=== PATIENT | female | born 1970 | race Two or more races ===

== ENCOUNTER 2016-06-21 20:41 | Emergency (ER) | payer MEDICAID ==
[~2016-06-21] VITALS: Ht 157.5 cm; Wt 48.4 kg
[~2016-06-21 20:41] MED LIST: AMOX1TAB64 PO; COMPAZINE; DEXL60CA PO; HYDR-3240 PO; HYDR25CA94 PO; OMEP10CA4 PO; ONDA4TAB10 PO; OXYC1TAB8 PO
[2016-06-21] MEDS ORDERED: SODIUM CHLORIDE 0.9% 1,000ML IVBOLUS ONE (21:00)
[2016-06-21] MEDS ORDERED: ONDANSETRON 2MG/ML, 2ML IVPush ONE (21:00)
[2016-06-21] MEDS ORDERED: SODIUM CHLORIDE FLUSH 10ML SYR IVF ONE (21:00)
[2016-06-21 21:11] LABS: HEMOGLOBIN 12.2 g/dL (11.7-16.4)
[2016-06-21] MEDS ORDERED: ONDANSETRON 2MG/ML, 2ML ONE (21:13)
[2016-06-21 21:24] LABS: BLOOD UREA NITROGEN 11 mg/dL (7-18)
[2016-06-21] MEDS ORDERED: IBUPROFEN 200 MG TABLET PO ONE (21:30)
[2016-06-21] MEDS ORDERED: IBUPROFEN 200 MG TABLET ONE (21:40)
[2016-06-21 21:56] LABS: RAPID INFLUENZA A Negative (Negative); RAPID INFLUENZA B Negative (Negative)
[2016-06-21 23:12] VITALS: BP 136/86
== END 2016-06-21 23:15 | disposition home or self-care (01) ==
LOC: ED 22:55
DX: B34.9 Viral infection, unspecified (principal); K21.9 Gastro-esophageal reflux disease without esophagitis; Z98.51 Tubal ligation status
CPT/HCPCS: 36415; 71020; 80048; 81003; 82040; 84703; 85025; 87400; 96361; 96374; 99285; J2405; J7030

== ENCOUNTER 2016-11-19 20:13 | Emergency (ER) | payer MEDICAID ==
[~2016-11-19] VITALS: Ht 157.5 cm; Wt 49.2 kg
[~2016-11-19 20:13] MED LIST changes: -DEXL60CA PO; +DEXL60CA2 PO
[2016-11-19] MEDS ORDERED: ACETAMINOPHEN 325 MG TABLET ONE (20:48)
[2016-11-19] MEDS ORDERED: ACETAMINOPHEN 325 MG TABLET PO ONE (21:00)
[2016-11-19 21:06] LABS: HEMATOCRIT 37.6 % (34.6-47.8); HEMOGLOBIN 12.2 g/dL (11.7-16.4); WHITE BLOOD COUNT 9.3 x10^3/uL (3.4-10)
[2016-11-19 21:16] LABS: BLOOD UREA NITROGEN 11 mg/dL (7-18)
[2016-11-19 21:49] VITALS: BP 127/59
== END 2016-11-19 21:52 | disposition home or self-care (01) ==
LOC: ED 21:46
DX: K21.9 Gastro-esophageal reflux disease without esophagitis (principal); R10.84 Generalized abdominal pain; J02.9 Acute pharyngitis, unspecified; F17.200 Nicotine dependence, unspecified, uncomplicated; Z98.51 Tubal ligation status
CPT/HCPCS: 36415; 71010; 80048; 81003; 82040; 85025; 93005; 99285

== ENCOUNTER 2017-01-21 23:43 | Emergency (ER) | payer MEDICAID ==
[~2017-01-21] VITALS: Ht 157.5 cm; Wt 50.0 kg
[2017-01-22] MEDS ORDERED: ONDANSETRON 2MG/ML, 2ML ONE (00:26)
[2017-01-22] MEDS ORDERED: morphine SULFATE 10 MG/ML, 1ML ONE (00:26)
[2017-01-22 00:29] LABS: HCG UR LOT HCG7030192
[2017-01-22] MEDS ORDERED: ONDANSETRON 2MG/ML, 2ML IVPush ONE (00:30)
[2017-01-22] MEDS ORDERED: MORPHINE SULFATE 4 MG/ML, 1ML IVPush PRN (00:30)
[2017-01-22] MEDS ORDERED: SODIUM CHLORIDE 0.9% 1,000ML IVBOLUS ONE (00:30)
[2017-01-22 00:36] LABS: HCG UR OBC PASS
[2017-01-22 00:39] LABS: PATH.CAST-FLAG NOT PRESENT; SPERM-FLAG NOT PRESENT; SRC-FLAG NOT PRESENT; XTAL-FLAG NOT PRESENT; YLC-FLAG NOT PRESENT
[2017-01-22 00:57] LABS: HEMATOCRIT 38.3 % (34.6-47.8); HEMOGLOBIN 12.8 g/dL (11.7-16.4)
[2017-01-22 01:08] LABS: ASPARTATE AMINO TRANSFERASE 10 U/L (15-37); BLOOD UREA NITROGEN 7 mg/dL (7-18)
[2017-01-22] MEDS ORDERED: ZIPRASIDONE 20 MG INJ IM ONE ×2 (02:00→02:25)
[2017-01-22 02:54] VITALS: BP 136/72
== END 2017-01-22 02:58 | disposition home or self-care (01) ==
LOC: ED 23:59
DX: S39.012A Strain of muscle, fascia and tendon of lower back, initial encounter (principal); K59.00 Constipation, unspecified; N83.291 Other ovarian cyst, right side; K21.9 Gastro-esophageal reflux disease without esophagitis; F17.200 Nicotine dependence, unspecified, uncomplicated; X58.XXXA Exposure to other specified factors, initial encounter; Y93.89 Activity, other specified; Y92.89 Other specified places as the place of occurrence of the external cause; Y99.8 Other external cause status
CPT/HCPCS: 36415; 72131; 80053; 81001; 81025; 85025; 87086; 96361; 96372; 96374; 96375; 99285; J2405; J3486; J7030

== ENCOUNTER 2017-04-25 13:57 | Emergency (ER) | payer MEDICAID ==
[~2017-04-25] VITALS: Ht 157.5 cm; Wt 46.5 kg
[2017-04-25] MEDS ORDERED: FAMOTIDINE 20 MG/2 ML IVP ONE (15:00)
[2017-04-25] MEDS ORDERED: ONDANSETRON 2MG/ML, 2ML IVPush ONE (15:00)
[2017-04-25] MEDS ORDERED: SODIUM CHLORIDE 0.9% 1,000ML IVBOLUS ONE (15:00)
[2017-04-25] MEDS ORDERED: SODIUM CHLORIDE FLUSH 10ML SYR IVF ONE (15:00)
[2017-04-25 15:07] LABS: BASOPHILS # (AUTO) 0.02 x10^3/uL (0-0.1); BASOPHILS % (AUTO) 0 % (0-1); EOSINOPHILS # (AUTO) 0.03 x10^3/uL (0-0.4); EOSINOPHILS % (AUTO) 1 % (1-7); LYMPHOCYTES # (AUTO) 2.39 x10^3/uL (1-3.4); LYMPHOCYTES % (AUTO) 38 % (22-44); MD NO; MEAN CORPUSCULAR HEMOGLOBIN 28.8 pg (27.0-34.8); MEAN CORPUSCULAR HGB CONC 33.1 g/dL (32.4-35.8); MEAN CORPUSCULAR VOLUME 86.8 fL (80-100); MEAN PLATELET VOLUME 8.7 fL (7.4-10.4); MONOCYTES # (AUTO) 0.33 x10^3/uL (0.2-0.8); MONOCYTES % (AUTO) 5 % (2-9); NEUTROPHILS % (AUTO) 56 % (42-75); PLATELET COUNT 231 x10^3/uL (130-400); RED BLOOD COUNT 4.75 x10^6/uL (3.82-5.3); RED CELL DISTRIBUTION WIDTH 13.8 % (9.6-15.2)
[2017-04-25] MEDS ORDERED: FAMOTIDINE 20 MG/2 ML ONE (15:08)
[2017-04-25] MEDS ORDERED: ONDANSETRON 2MG/ML, 2ML ONE ×2 (15:08→17:51)
[2017-04-25 15:15] LABS: ALBUMIN 4.2 g/dL (3.4-5.0); ANION GAP 9 mmol/L (5-15); CALCIUM 8.9 mg/dL (8.5-10.1); CHLORIDE 109 mmol/L (98-107)
[2017-04-25 15:21] LABS: ALANINE AMINOTRANSFERASE 17 U/L (12-78); ALKALINE PHOSPHATASE 58 U/L (45-117); BILIRUBIN,TOTAL 0.3 mg/dL (0.2-1.0); TOTAL PROTEIN 8.3 g/dL (6.4-8.2)
[2017-04-25 15:35] LABS: MICROSCOPIC NOT IND
[2017-04-25 15:41] LABS: CULTURE INDICATED? NO
[2017-04-25] MEDS ORDERED: KETOROLAC 30 MG/1 ML ONE (16:29)
[2017-04-25] MEDS ORDERED: KETOROLAC 30 MG/1 ML IVPush ONE (16:30)
[2017-04-25] MEDS ORDERED: HYDROmorphone 1 MG/ML, 1ML ONE (17:47)
[2017-04-25] MEDS ORDERED: HYDROmorphone 1 MG/ML, 1ML IV ONE (18:00)
[2017-04-25 18:35] VITALS: BP 136/85
== END 2017-04-25 18:37 | disposition home or self-care (01) ==
LOC: ED 16:46
DX: R10.84 Generalized abdominal pain (principal); G89.29 Other chronic pain; K21.9 Gastro-esophageal reflux disease without esophagitis
CPT/HCPCS: 36415; 76700; 80053; 81003; 83690; 84703; 85025; 96361; 96374; 96375; 99285; J1170; J1885; J2405; J7030; S0028

== ENCOUNTER 2017-11-30 22:33 | Emergency (ER) | payer OTHER ==
[~2017-11-30] VITALS: Ht 157.5 cm; Wt 44.8 kg
[~2017-11-30 22:33] MED LIST changes: +AMIT10TA PO; +DICY10CA3 PO; +FAMO40TA61 PO
[2017-11-30] MEDS ORDERED: LORazepam 1MG TABLET ONE (23:16)
[2017-11-30] MEDS ORDERED: LORazepam 1MG TABLET PO ONE (23:30)
[2017-11-30 23:32] LABS: BASOPHILS # (AUTO) 0.03 x10^3/uL (0-0.1); BASOPHILS % (AUTO) 1 % (0-1); EOSINOPHILS # (AUTO) 0.07 x10^3/uL (0-0.4); EOSINOPHILS % (AUTO) 1 % (1-7); LYMPHOCYTES # (AUTO) 2.74 x10^3/uL (1-3.4); LYMPHOCYTES % (AUTO) 45 % (22-44); MD NO; MEAN CORPUSCULAR HEMOGLOBIN 30.1 pg (27.0-34.8); MEAN CORPUSCULAR HGB CONC 34.4 g/dL (32.4-35.8); MEAN CORPUSCULAR VOLUME 87.6 fL (80-100); MONOCYTES # (AUTO) 0.44 x10^3/uL (0.2-0.8); MONOCYTES % (AUTO) 7 % (2-9); NEUTROPHILS # (AUTO) 2.78 x10^3/uL (1.8-6.8); NEUTROPHILS % (AUTO) 46 % (42-75); PLATELET COUNT 200 x10^3/uL (130-400); RED BLOOD COUNT 4.27 x10^6/uL (3.82-5.3); RED CELL DISTRIBUTION WIDTH 12.9 % (9.6-15.2)
[2017-11-30 23:34] LABS: ALANINE AMINOTRANSFERASE 23 U/L (12-78); ANION GAP 9 mmol/L (5-15); CHLORIDE 109 mmol/L (98-107)
[2017-11-30 23:38] LABS: ALKALINE PHOSPHATASE 54 U/L (45-117); BILIRUBIN,TOTAL 0.5 mg/dL (0.2-1.0); TOTAL PROTEIN 7.8 g/dL (6.4-8.2); TROPONIN I < 0.015 ng/mL (0.000-0.045)
[2017-12-01 00:08] VITALS: BP 124/87
[2017-12-01] MEDS ORDERED: PROMETHAZINE 25 MG/ML, 1ML ONE (00:09)
[2017-12-01] MEDS ORDERED: PROMETHAZINE 25 MG/ML, 1ML IM ONE (00:30)
== END 2017-12-01 01:21 | disposition home or self-care (01) ==
LOC: ED 23:02
DX: K21.9 Gastro-esophageal reflux disease without esophagitis (principal)
CPT/HCPCS: 36415; 80053; 84484; 85025; 93005; 96372; 99285; J2550

== ENCOUNTER 2018-02-18 01:44 | Emergency (ER) | payer OTHER ==
[~2018-02-18] VITALS: Ht 157.5 cm; Wt 44.4 kg
[2018-02-18 02:07] LABS: MICROSCOPIC AUTO
[2018-02-18] MEDS ORDERED: ONDANSETRON 2MG/ML, 2ML ONE (02:11)
[2018-02-18] MEDS ORDERED: MORPHINE SULFATE 4 MG/ML, 1ML ONE (02:12)
[2018-02-18] MEDS ORDERED: ONDANSETRON 2MG/ML, 2ML IVPush ONE (02:30)
[2018-02-18] MEDS ORDERED: MORPHINE SULFATE 4 MG/ML, 1ML IVPush PRN (02:30)
[2018-02-18 02:36] LABS: BASOPHILS # (AUTO) 0.04 x10^3/uL (0-0.1); BASOPHILS % (AUTO) 0 % (0-1); EOSINOPHILS # (AUTO) 0.02 x10^3/uL (0-0.4); EOSINOPHILS % (AUTO) 0 % (1-7); LYMPHOCYTES # (AUTO) 2.88 x10^3/uL (1-3.4); LYMPHOCYTES % (AUTO) 29 % (22-44); MD NO; MEAN CORPUSCULAR HEMOGLOBIN 29.7 pg (27.0-34.8); MEAN CORPUSCULAR HGB CONC 33.2 g/dL (32.4-35.8); MEAN CORPUSCULAR VOLUME 89.6 fL (80-100); MEAN PLATELET VOLUME 8.4 fL (7.4-10.4); MONOCYTES # (AUTO) 0.55 x10^3/uL (0.2-0.8); MONOCYTES % (AUTO) 5 % (2-9); NEUTROPHILS # (AUTO) 6.62 x10^3/uL (1.8-6.8); NEUTROPHILS % (AUTO) 66 % (42-75); PLATELET COUNT 298 x10^3/uL (130-400); RED BLOOD COUNT 4.76 x10^6/uL (3.82-5.3); RED CELL DISTRIBUTION WIDTH 14.3 % (9.6-15.2)
[2018-02-18 02:43] LABS: ALANINE AMINOTRANSFERASE 25 U/L (12-78); ALBUMIN 4.4 g/dL (3.4-5.0); ANION GAP 15 mmol/L (5-15); CALCIUM 8.7 mg/dL (8.5-10.1); CHLORIDE 103 mmol/L (98-107); CREATININE 0.75 mg/dL (0.55-1.02)
[2018-02-18 02:45] LABS: ALKALINE PHOSPHATASE 59 U/L (45-117); BILIRUBIN,TOTAL 0.6 mg/dL (0.2-1.0); TOTAL PROTEIN 8.6 g/dL (6.4-8.2)
[2018-02-18 03:54] LABS: HCG UR SG 1.012 (1.003-1.030)
[2018-02-18] MEDS ORDERED: METOCLOPRAMIDE 5 MG/ML, 2ML ONE (04:13)
[2018-02-18] MEDS ORDERED: LORazepam 2 MG/ML, 1ML ONE (04:13)
[2018-02-18] MEDS ORDERED: METOCLOPRAMIDE 5 MG/ML, 2ML IVPush ONE (04:30)
[2018-02-18] MEDS ORDERED: LORazepam 2 MG/ML, 1ML IVPush ONE (04:30)
[2018-02-18 04:52] VITALS: BP 114/63
== END 2018-02-18 04:55 | disposition home or self-care (01) ==
LOC: ED 02:45
DX: K25.3 Acute gastric ulcer without hemorrhage or perforation (principal); F41.1 Generalized anxiety disorder; K21.9 Gastro-esophageal reflux disease without esophagitis; F17.200 Nicotine dependence, unspecified, uncomplicated
CPT/HCPCS: 36415; 80053; 81001; 81025; 83690; 85025; 86677; 96374; 96375; 99283; J2060; J2405; J2765

== ENCOUNTER 2018-03-16 14:27 | Emergency (ER) | payer OTHER, MEDICAID ==
[~2018-03-16] VITALS: Ht 157.5 cm; Wt 42.9 kg
[2018-03-16] MEDS ORDERED: LORazepam 2 MG/ML, 1ML ONE (15:00)
[2018-03-16] MEDS ORDERED: DICYCLOMINE 10 MG/ML, 2ML ONE (15:00)
[2018-03-16] MEDS ORDERED: LORazepam 2 MG/ML, 1ML IVPush ONE (15:00)
[2018-03-16] MEDS ORDERED: DICYCLOMINE 10 MG/ML, 2ML IM ONE (15:00)
[2018-03-16] MEDS ORDERED: PANTOPRAZOLE 40 MG IV IVP ONE (15:00)
[2018-03-16] MEDS ORDERED: ONDANSETRON 2MG/ML, 2ML ONE (15:00)
[2018-03-16] MEDS ORDERED: ONDANSETRON 2MG/ML, 2ML IVPush ONE (15:00)
[2018-03-16] MEDS ORDERED: PANTOPRAZOLE 40 MG IV ONE (15:00)
[2018-03-16 15:04] LABS: HCG UR SG 1.018 (1.003-1.030); MICROSCOPIC AUTO
[2018-03-16 15:06] LABS: CULTURE INDICATED? NO
[2018-03-16 15:23] LABS: BASOPHILS # (AUTO) 0.07 x10^3/uL (0-0.1); BASOPHILS % (AUTO) 1 % (0-1); EOSINOPHILS # (AUTO) 0.01 x10^3/uL (0-0.4); EOSINOPHILS % (AUTO) 0 % (1-7); LYMPHOCYTES # (AUTO) 2.35 x10^3/uL (1-3.4); LYMPHOCYTES % (AUTO) 21 % (22-44); MD NO; MEAN CORPUSCULAR HEMOGLOBIN 30.2 pg (27.0-34.8); MEAN CORPUSCULAR HGB CONC 33.8 g/dL (32.4-35.8); MEAN CORPUSCULAR VOLUME 89.3 fL (80-100); MEAN PLATELET VOLUME 8.3 fL (7.4-10.4); MONOCYTES # (AUTO) 0.66 x10^3/uL (0.2-0.8); MONOCYTES % (AUTO) 6 % (2-9); NEUTROPHILS # (AUTO) 8.05 x10^3/uL (1.8-6.8); NEUTROPHILS % (AUTO) 72 % (42-75); PLATELET COUNT 267 x10^3/uL (130-400); RED BLOOD COUNT 4.71 x10^6/uL (3.82-5.3); RED CELL DISTRIBUTION WIDTH 13.8 % (9.6-15.2)
[2018-03-16 15:35] LABS: ALBUMIN 4.9 g/dL (3.4-5.0); ANION GAP 14 mmol/L (5-15); CALCIUM 8.6 mg/dL (8.5-10.1); CHLORIDE 103 mmol/L (98-107)
[2018-03-16 15:38] LABS: ALANINE AMINOTRANSFERASE 26 U/L (12-78); ALKALINE PHOSPHATASE 69 U/L (45-117); BILIRUBIN,TOTAL 1.7 mg/dL (0.2-1.0); CREATININE 0.73 mg/dL (0.55-1.02); TOTAL PROTEIN 8.8 g/dL (6.4-8.2)
[2018-03-16] MEDS ORDERED: MAALOX/HYOSCYAMINE/LIDOCAINE 45 ML BTL ONE (15:51)
[2018-03-16] MEDS ORDERED: MAALOX/HYOSCYAMINE/LIDOCAINE 45 ML BTL PO ONE (16:00)
[2018-03-16] MEDS ORDERED: PROMETHAZINE 25 MG/ML, 1ML IM ONE (16:30)
[2018-03-16] MEDS ORDERED: PROMETHAZINE 25 MG/ML, 1ML ONE (16:35)
[2018-03-16 17:05] VITALS: BP 111/64
== END 2018-03-16 17:34 | disposition home or self-care (01) ==
LOC: ED 16:21
DX: K29.20 Alcoholic gastritis without bleeding (principal); F10.20 Alcohol dependence, uncomplicated; K21.9 Gastro-esophageal reflux disease without esophagitis
CPT/HCPCS: 36415; 76830; 80053; 81001; 81025; 83690; 85025; 96372; 96374; 96375; 99284; C9113; J0500; J2060; J2405; J2550

== ENCOUNTER 2018-05-03 18:08 | Emergency (ER) | payer MEDICAID, OTHER ==
[~2018-05-03] VITALS: Ht 157.5 cm; Wt 42.4 kg
--- NOTE | 2018-05-03 18:28 | NUR ---
PT REPORTS HAVING EPIGASTRIC PAIN, JUARES, AND ANXIETY. STATED THAT SHE HAS HAD STOMACH PROBLEMS FOR 25 YEARS, BUT GOT WORSE TODAY. PT IS ALERT, ORIENTED, NAD. CALL LIGHT WITHIN REACH.
[2018-05-03 18:32] LABS: BASOPHILS # (AUTO) 0.03 x10^3/uL (0-0.1); BASOPHILS % (AUTO) 1 % (0-1); EOSINOPHILS # (AUTO) 0.05 x10^3/uL (0-0.4); EOSINOPHILS % (AUTO) 1 % (1-7); LYMPHOCYTES # (AUTO) 2.35 x10^3/uL (1-3.4); LYMPHOCYTES % (AUTO) 36 % (22-44); MD NO; MEAN CORPUSCULAR HEMOGLOBIN 30.4 pg (27.0-34.8); MEAN CORPUSCULAR VOLUME 89.6 fL (80-100); MEAN PLATELET VOLUME 8.3 fL (7.4-10.4); MONOCYTES # (AUTO) 0.58 x10^3/uL (0.2-0.8); MONOCYTES % (AUTO) 9 % (2-9); NEUTROPHILS # (AUTO) 3.51 x10^3/uL (1.8-6.8); NEUTROPHILS % (AUTO) 54 % (42-75); PLATELET COUNT 264 x10^3/uL (130-400); RED CELL DISTRIBUTION WIDTH 13.3 % (9.6-15.2)
[2018-05-03 18:42] LABS: ALANINE AMINOTRANSFERASE 23 U/L (12-78); ALBUMIN 4.6 g/dL (3.4-5.0); ANION GAP 9 mmol/L (5-15); CALCIUM 9.6 mg/dL (8.5-10.1); CHLORIDE 104 mmol/L (98-107); CREATININE 0.89 mg/dL (0.55-1.02)
[2018-05-03 18:44] LABS: ALKALINE PHOSPHATASE 74 U/L (45-117); BILIRUBIN,TOTAL 0.7 mg/dL (0.2-1.0); TOTAL PROTEIN 8.7 g/dL (6.4-8.2)
--- NOTE | 2018-05-03 18:57 | NUR ---
REPORT GIVEN TO SERGIO HERNÁNDEZ.
[2018-05-03] MEDS ORDERED: PROCHLORPERAZINE 5 MG/ML, 2ML IM ONE (19:00)
[2018-05-03] MEDS ORDERED: ACETAMINOPHEN 500 MG TABLET PO ONE (19:00)
[2018-05-03] MEDS ORDERED: MAALOX/HYOSCYAMINE/LIDOCAINE 45 ML BTL ONE (19:10)
[2018-05-03] MEDS ORDERED: ACETAMINOPHEN 500 MG TABLET ONE (19:10)
[2018-05-03] MEDS ORDERED: PROCHLORPERAZINE 5 MG/ML, 2ML ONE (19:11)
[2018-05-03] MEDS: MAALOX/HYOSCYAMINE/LIDOCAINE 45 ML BTL PO ONE ×2 (19:14→19:15)
--- NOTE | 2018-05-03 19:22 | NUR ---
PT MEDICATED PER MAR, PT UP TO RR WITH STEADY GAIT, PROVIDED PT WITH URINE CUP
[2018-05-03 19:36] LABS: HCG UR SG 1.007 (1.003-1.030); MICROSCOPIC AUTO
[2018-05-03 19:42] LABS: CULTURE INDICATED? NO
[2018-05-03] MEDS ORDERED: LORazepam 2 MG/ML, 1ML ONE (20:13)
--- NOTE | 2018-05-03 20:15 | NUR ---
PT RESTING ON [facility], MONITORS IN PLACE, MEDICATED PER MAY, CALL LIGHT WITHIN REACH.
[2018-05-03] MEDS ORDERED: LORazepam 2 MG/ML, 1ML IM ONE (20:30)
[2018-05-03 21:07] VITALS: BP 110/76
== END 2018-05-03 21:19 | disposition home or self-care (01) ==
LOC: ED 19:47
DX: R10.13 Epigastric pain (principal); R11.0 Nausea; G44.209 Tension-type headache, unspecified, not intractable; F17.200 Nicotine dependence, unspecified, uncomplicated; K21.9 Gastro-esophageal reflux disease without esophagitis
CPT/HCPCS: 36415; 80053; 81001; 81025; 83690; 85025; 96372; 99283; J0780; J2060

== ENCOUNTER 2018-07-10 20:45 | Emergency (ER) | payer MEDICAID ==
[~2018-07-10] VITALS: Ht 157.5 cm; Wt 45.5 kg
[2018-07-10 20:47] VITALS: BP 145/91
--- NOTE | 2018-07-10 21:01 | NUR ---
PT IN ROOM CHANGING.
[2018-07-10] MEDS ORDERED: ACETAMINOPHEN 500 MG TABLET PO ONE (21:30)
[2018-07-10] MEDS ORDERED: ONDANSETRON 2MG/ML, 2ML IVPush ONE (21:30)
[2018-07-10] MEDS ORDERED: MORPHINE SULFATE 4 MG/ML, 1ML IVPush PRN (21:30)
--- NOTE | 2018-07-10 21:53 | NUR ---
PT IN ULTRASOUND AT THIS TIME.
--- NOTE | 2018-07-10 21:56 | NUR ---
REPORT FROM BETTY CRAIG
[2018-07-10 22:01] LABS: MICROSCOPIC AUTO
[2018-07-10 22:16] LABS: BASOPHILS # (AUTO) 0.04 x10^3/uL (0-0.1); BASOPHILS % (AUTO) 1 % (0-1); EOSINOPHILS # (AUTO) 0.05 x10^3/uL (0-0.4); EOSINOPHILS % (AUTO) 1 % (1-7); LYMPHOCYTES # (AUTO) 2.52 x10^3/uL (1-3.4); LYMPHOCYTES % (AUTO) 45 % (22-44); MD NO; MEAN CORPUSCULAR HEMOGLOBIN 30.1 pg (27.0-34.8); MEAN CORPUSCULAR VOLUME 88.5 fL (80-100); MEAN PLATELET VOLUME 8.8 fL (7.4-10.4); MONOCYTES # (AUTO) 0.45 x10^3/uL (0.2-0.8); MONOCYTES % (AUTO) 8 % (2-9); NEUTROPHILS # (AUTO) 2.59 x10^3/uL (1.8-6.8); NEUTROPHILS % (AUTO) 46 % (42-75); PLATELET COUNT 227 x10^3/uL (130-400); RED BLOOD COUNT 4.26 x10^6/uL (3.82-5.3); RED CELL DISTRIBUTION WIDTH 13.5 % (9.6-15.2)
[2018-07-10] MEDS ORDERED: ONDANSETRON 2MG/ML, 2ML ONE (22:16)
[2018-07-10] MEDS ORDERED: MORPHINE SULFATE 4 MG/ML, 1ML ONE (22:17)
[2018-07-10 22:23] LABS: CULTURE INDICATED? NO
[2018-07-10 22:27] LABS: ALBUMIN 4.2 g/dL (3.4-5.0); ANION GAP 8 mmol/L (5-15); CALCIUM 9.2 mg/dL (8.5-10.1); CHLORIDE 111 mmol/L (98-107); CREATININE 0.71 mg/dL (0.55-1.02)
--- NOTE | 2018-07-10 22:31 | NUR ---
PT REPORTS L FLANK/LLQ PAIN RADIATING ACROSS ABD AND DOWN LEGS X TWO DAYS. PT RESTLESS/TEARFUL, "I JUST COULDN'T HANDLE IT ANY MORE" PT REPORTS VB X YESTERDAY, "IT SHOULDN'T HAVE COME YET". REPORTS REGULAR MENSES "ABOUT TO WEEKS AGO". +N/V; DENIES PAINFUL URINATION/FEVER/WEAKNESS/DIARRHEA
[2018-07-10] MEDS ORDERED: KETOROLAC 30 MG/1 ML ONE (22:47)
[2018-07-10] MEDS ORDERED: LORazepam 2 MG/ML, 1ML ONE (22:48)
[2018-07-10] MEDS ORDERED: LORazepam 2 MG/ML, 1ML IVPush ONE (23:00)
[2018-07-10] MEDS ORDERED: KETOROLAC 30 MG/1 ML IVPush ONE (23:00)
--- NOTE | 2018-07-10 23:09 | NUR ---
PT REPORTS SLIGHT IMPROVEMENT IN PAIN. PT APPEARS MORE CALM. PT REQUESTING "A LITTLE MORE TIME TO LET MEDS SINK IN".
--- NOTE | 2018-07-10 23:34 | NUR ---
PT REPORTS IMPROVEMENT IN PAIN, CONTINUES TO CO NAUSEA. DC EDUCATION PROVIDED, INCLUDING INSTRUCTIONS FOR NAUSEA MEDICATIONS. PT AGREES TO MANAGE S/S WITH RX. DC EDUCATION PROVIDED, PT DEMONSTRATES UNDERSTANDING.
--- NOTE | 2018-07-10 23:45 | NUR ---
PT AMBULATED STEADILY TO DC WITH RN AND FAMILY. FAMILY TO TRANSPORT PT HOME
== END 2018-07-10 23:46 | disposition home or self-care (01) ==
LOC: ED 22:46
DX: N93.8 Other specified abnormal uterine and vaginal bleeding (principal)
CPT/HCPCS: 36415; 76830; 80048; 81001; 82040; 84703; 85025; 96374; 96375; 99284; J1885; J2060; J2405

== ENCOUNTER 2018-10-01 21:38 | Emergency (ER) | payer MEDICAID ==
[~2018-10-01] VITALS: Ht 157.5 cm; Wt 46.2 kg
--- NOTE | 2018-10-01 21:49 | NUR ---
DIFFICULT TO OBTAIN READABLE EKG IN TRIAGE DUE TO RAPID BREATHING AND SHAKING AND TENSE MUSCLES. BREATHING EXERCISES AND RELAXATION ATTEMPTED. ARTIFACT NOT ALLOWING FOR CLEAR EKG
--- NOTE | 2018-10-01 21:59 | NUR ---
NAUSEA AND PAIN IN EPIGASTRIC AREA, STARTED THIS EVENING. DENIES CP, SOB, EMESIS
--- NOTE | 2018-10-01 22:05 | NUR ---
er md in to assess pt
[2018-10-01] MEDS ORDERED: MAALOX/HYOSCYAMINE/LIDOCAINE 45 ML BTL ONE (22:08)
[2018-10-01] MEDS ORDERED: FAMOTIDINE 20 MG TABLET ONE (22:08)
[2018-10-01] MEDS ORDERED: ONDANSETRON ODT 4 MG ONE (22:08)
[2018-10-01 22:27] LABS: MICROSCOPIC NOT IND
[2018-10-01 22:28] LABS: BASOPHILS # (AUTO) 0.06 x10^3/uL (0-0.1); BASOPHILS % (AUTO) 1 % (0-1); EOSINOPHILS # (AUTO) 0.02 x10^3/uL (0-0.4); EOSINOPHILS % (AUTO) 0 % (1-7); LYMPHOCYTES # (AUTO) 2.86 x10^3/uL (1-3.4); LYMPHOCYTES % (AUTO) 36 % (22-44); MD NO; MEAN CORPUSCULAR HEMOGLOBIN 28.4 pg (27.0-34.8); MEAN CORPUSCULAR HGB CONC 32.4 g/dL (32.4-35.8); MEAN CORPUSCULAR VOLUME 87.4 fL (80-100); MEAN PLATELET VOLUME 8.4 fL (7.4-10.4); MONOCYTES # (AUTO) 0.79 x10^3/uL (0.2-0.8); MONOCYTES % (AUTO) 10 % (2-9); NEUTROPHILS # (AUTO) 4.15 x10^3/uL (1.8-6.8); NEUTROPHILS % (AUTO) 53 % (42-75); PLATELET COUNT 276 x10^3/uL (130-400); RED BLOOD COUNT 4.53 x10^6/uL (3.82-5.3)
[2018-10-01] MEDS ORDERED: MAALOX/HYOSCYAMINE/LIDOCAINE 45 ML BTL PO ONE (22:30)
[2018-10-01] MEDS ORDERED: ONDANSETRON ODT 4 MG PO ONE (22:30)
[2018-10-01] MEDS ORDERED: FAMOTIDINE 20 MG TABLET PO ONE (22:30)
[2018-10-01 22:31] LABS: ALANINE AMINOTRANSFERASE 18 U/L (12-78); ALBUMIN 4.3 g/dL (3.4-5.0); ANION GAP 12 mmol/L (5-15); CALCIUM 8.3 mg/dL (8.5-10.1); CHLORIDE 104 mmol/L (98-107); CREATININE 0.72 mg/dL (0.55-1.02)
[2018-10-01 22:33] LABS: CULTURE INDICATED? NO
[2018-10-01 22:36] LABS: ALKALINE PHOSPHATASE 54 U/L (45-117); BILIRUBIN,TOTAL 1.4 mg/dL (0.2-1.0)
--- NOTE | 2018-10-02 00:17 | NUR ---
CARE ASSUMED FOR DC. PT DC'D HOME WITH RX X 2 AND UNDERSTANDING OF INSTRUCTIONS. PT AND FAMILY MEMBER ESCORTED TO DC DESK, PT GAIT STEADY.
[2018-10-02 00:18] VITALS: BP 111/82
== END 2018-10-02 00:20 | disposition home or self-care (01) ==
LOC: ED 23:31
DX: K29.20 Alcoholic gastritis without bleeding (principal); K21.9 Gastro-esophageal reflux disease without esophagitis; F17.200 Nicotine dependence, unspecified, uncomplicated; Z88.5 Allergy status to narcotic agent
CPT/HCPCS: 36415; 76700; 80053; 81003; 83690; 84703; 85025; 93005; 99284; Q0162

== ENCOUNTER 2019-04-29 09:03 | Emergency (ER) | payer MEDICAID ==
[~2019-04-29] VITALS: Ht 157.5 cm; Wt 45.1 kg
[~2019-04-29 09:03] MED LIST changes: -OMEP10CA4 PO; +OMEP10CA5 PO
--- NOTE | 2019-04-29 09:11 | NUR ---
PT PRESENTED TO ED D/T UPPER QUADRANT ABD PAIN SINCE THIS AM. PT STATES WOKE HER UP FROM HER SLEEP. +NAUSEA AND CHILLS. PT DENIES VOMITTING AND DIARRHEA.
[2019-04-29] MEDS ORDERED: ONDA4TAB7 PO (09:15)
[2019-04-29] MEDS ORDERED: MAALOX/HYOSCYAMINE/LIDOCAINE 45 ML BTL ONE (09:50)
[2019-04-29] MEDS ORDERED: ONDANSETRON 2MG/ML, 2ML ONE (09:50)
[2019-04-29 09:52] LABS: BASOPHILS # (AUTO) 0.03 x10^3/uL (0-0.1); BASOPHILS % (AUTO) 0 % (0-1); EOSINOPHILS # (AUTO) 0.01 x10^3/uL (0-0.4); EOSINOPHILS % (AUTO) 0 % (1-7); LYMPHOCYTES # (AUTO) 2.41 x10^3/uL (1-3.4); LYMPHOCYTES % (AUTO) 27 % (22-44); MD NO; MEAN CORPUSCULAR HEMOGLOBIN 28.7 pg (27.0-34.8); MEAN CORPUSCULAR HGB CONC 33.2 g/dL (32.4-35.8); MEAN CORPUSCULAR VOLUME 86.6 fL (80-100); MEAN PLATELET VOLUME 8.1 fL (7.4-10.4); MONOCYTES # (AUTO) 0.57 x10^3/uL (0.2-0.8); MONOCYTES % (AUTO) 6 % (2-9); NEUTROPHILS % (AUTO) 66 % (42-75); PLATELET COUNT 305 x10^3/uL (130-400); RED BLOOD COUNT 4.72 x10^6/uL (3.82-5.3); RED CELL DISTRIBUTION WIDTH 15.1 % (9.6-15.2)
--- NOTE | 2019-04-29 09:56 | NUR ---
BREAK RN: PT RTD TO ROOM, BP, [id number] IN PLACE. CALL LIGHT W/I REACH
[2019-04-29] MEDS ORDERED: MAALOX/HYOSCYAMINE/LIDOCAINE 45 ML BTL PO ONE (10:00)
[2019-04-29] MEDS ORDERED: SODIUM CHLORIDE FLUSH 10ML SYR IVF ONE (10:00)
[2019-04-29] MEDS ORDERED: SODIUM CHLORIDE 0.9% 1,000ML IVBOLUS ONE ×2 (10:00→12:00)
[2019-04-29] MEDS ORDERED: ONDANSETRON 2MG/ML, 2ML IVPush ONE (10:00)
[2019-04-29 10:04] LABS: ALANINE AMINOTRANSFERASE 29 U/L (12-78); ALBUMIN 4.4 g/dL (3.4-5.0); ANION GAP 12 mmol/L (5-15); CALCIUM 8.5 mg/dL (8.5-10.1); CHLORIDE 103 mmol/L (98-107); CREATININE 0.67 mg/dL (0.55-1.02)
[2019-04-29 10:09] LABS: ALKALINE PHOSPHATASE 74 U/L (45-117); BILIRUBIN,TOTAL 1.1 mg/dL (0.2-1.0); TOTAL PROTEIN 8.5 g/dL (6.4-8.2)
[2019-04-29] MEDS ORDERED: LORazepam 2 MG/ML, 1ML ONE (10:29)
[2019-04-29] MEDS ORDERED: LORazepam 2 MG/ML, 1ML IVPush ONE (10:30)
--- NOTE | 2019-04-29 10:31 | NUR ---
RN ADMINISTERED 1MG OF ATIVAN PER EMAR PER REQUEST BY PT.
--- NOTE | 2019-04-29 10:47 | NUR ---
RN UNHOOKED PT FROM MONITOR TO TRY AND PROVIDE RN WITH A URINE SAMPLE. S.O. HELPING PT TO THE RESTROOM.
--- NOTE | 2019-04-29 10:57 | NUR ---
PT ABLE TO PROVIDE RN WITH A URINE SAMPLE. COLLECTED AND SENT TO LAB.
--- NOTE | 2019-04-29 11:06 | NUR ---
PT RESTING COMFORTABLY ON GURNEY WATCHING TV. S.O. AT BEDSIDE. NO NEEDS AT THIS TIME. AWAITING RESULTS FROM [facility].
[2019-04-29 11:09] LABS: MICROSCOPIC AUTO
[2019-04-29 11:11] LABS: CULTURE INDICATED? NO
--- NOTE | 2019-04-29 11:39 | NUR ---
ERMD AT BEDSIDE REEVALUATING PT.
--- NOTE | 2019-04-29 11:44 | NUR ---
SECOND LITER OF NS BEING ADMINISTERED PER EMAR.
[2019-04-29 12:37] VITALS: BP 118/75
--- NOTE | 2019-04-29 12:38 | NUR ---
PT DISCHARGED HOME IN A STABLE CONDITION. PIV WAS REMOVED WTH TIP INTACT. DC INSTRUCTIONS WERE DISCUSSED WITH PT. PT VERBALIZED UNDERSTANDING. NO FURTHER QUESTIONS OR CONCERNS WERE EXPRESSED AT THAT TIME. PT WAS WHEELED TO DC DESK BY Celia
== END 2019-04-29 12:40 | disposition home or self-care (01) ==
LOC: ED 10:20
DX: R10.84 Generalized abdominal pain (principal); R11.0 Nausea; F17.200 Nicotine dependence, unspecified, uncomplicated; K21.9 Gastro-esophageal reflux disease without esophagitis; Z98.51 Tubal ligation status
CPT/HCPCS: 36415; 80053; 81001; 83690; 84703; 85025; 96374; 96375; 99283; J2060; J2405; J7030

== ENCOUNTER 2019-05-12 14:46 | Emergency (ER) | payer MEDICAID ==
[~2019-05-12] VITALS: Ht 157.5 cm; Wt 50.0 kg
[~2019-05-12 14:46] MED LIST changes: +ONDA4TAB7 PO
[2019-05-12 14:56] VITALS: BP 150/69
[2019-05-12 15:26] LABS: BASOPHILS # (AUTO) 0.03 x10^3/uL (0-0.1); BASOPHILS % (AUTO) 0 % (0-1); EOSINOPHILS # (AUTO) 0.01 x10^3/uL (0-0.4); EOSINOPHILS % (AUTO) 0 % (1-7); LYMPHOCYTES # (AUTO) 2.14 x10^3/uL (1-3.4); LYMPHOCYTES % (AUTO) 28 % (22-44); MD NO; MEAN CORPUSCULAR HEMOGLOBIN 28.5 pg (27.0-34.8); MEAN CORPUSCULAR HGB CONC 33.2 g/dL (32.4-35.8); MONOCYTES # (AUTO) 0.57 x10^3/uL (0.2-0.8); MONOCYTES % (AUTO) 7 % (2-9); NEUTROPHILS % (AUTO) 65 % (42-75); PLATELET COUNT 285 x10^3/uL (130-400); RED BLOOD COUNT 4.56 x10^6/uL (3.82-5.3); RED CELL DISTRIBUTION WIDTH 15.8 % (9.6-15.2)
[2019-05-12 15:30] LABS: ALANINE AMINOTRANSFERASE 33 U/L (12-78); ALBUMIN 4.4 g/dL (3.4-5.0); ANION GAP 9 mmol/L (5-15); CALCIUM 9.2 mg/dL (8.5-10.1); CHLORIDE 105 mmol/L (98-107); CREATININE 0.68 mg/dL (0.55-1.02)
[2019-05-12 15:32] LABS: ALKALINE PHOSPHATASE 67 U/L (45-117); BILIRUBIN,TOTAL 0.6 mg/dL (0.2-1.0); TOTAL PROTEIN 8.6 g/dL (6.4-8.2)
--- NOTE | 2019-05-12 18:46 | NUR ---
[id number]
--- NOTE | 2019-05-12 19:07 | NUR ---
NOT IN LOBBY
--- NOTE | 2019-05-12 19:21 | NUR ---
not in lobby
--- NOTE | 2019-05-12 19:32 | NUR ---
not in lobby
== END 2019-05-12 19:34 | disposition left against medical advice (07) ==
LOC: ED 15:46
DX: R10.13 Epigastric pain (principal); R11.0 Nausea
CPT/HCPCS: 36415; 76700; 80053; 83690; 85025; 99284

== ENCOUNTER 2019-05-29 16:49 | Emergency (ER) | payer MEDICAID ==
[~2019-05-29] VITALS: Ht 157.5 cm; Wt 45.3 kg
[2019-05-29 18:15] LABS: BASOPHILS # (AUTO) 0.05 x10^3/uL (0-0.1); BASOPHILS % (AUTO) 1 % (0-1); EOSINOPHILS # (AUTO) 0.04 x10^3/uL (0-0.4); EOSINOPHILS % (AUTO) 1 % (1-7); LYMPHOCYTES # (AUTO) 1.81 x10^3/uL (1-3.4); LYMPHOCYTES % (AUTO) 27 % (22-44); MD NO; MEAN CORPUSCULAR HEMOGLOBIN 28.4 pg (27.0-34.8); MEAN CORPUSCULAR HGB CONC 33.1 g/dL (32.4-35.8); MEAN CORPUSCULAR VOLUME 85.7 fL (80-100); MONOCYTES # (AUTO) 0.39 x10^3/uL (0.2-0.8); MONOCYTES % (AUTO) 6 % (2-9); NEUTROPHILS # (AUTO) 4.48 x10^3/uL (1.8-6.8); NEUTROPHILS % (AUTO) 66 % (42-75); PLATELET COUNT 280 x10^3/uL (130-400); RED BLOOD COUNT 4.38 x10^6/uL (3.82-5.3); RED CELL DISTRIBUTION WIDTH 15.5 % (9.6-15.2)
[2019-05-29 18:26] LABS: ALANINE AMINOTRANSFERASE 41 U/L (12-78); ALBUMIN 4.5 g/dL (3.4-5.0); ANION GAP 16 mmol/L (5-15); CALCIUM 8.2 mg/dL (8.5-10.1); CHLORIDE 102 mmol/L (98-107); CREATININE 0.61 mg/dL (0.55-1.02)
[2019-05-29 18:31] LABS: ALKALINE PHOSPHATASE 75 U/L (45-117); BILIRUBIN,TOTAL 1.3 mg/dL (0.2-1.0); TOTAL PROTEIN 8.4 g/dL (6.4-8.2)
--- NOTE | 2019-05-29 19:38 | NUR ---
PT TO TRIAGE AND VS RECHECKED Addendum: 05/29/19 at 1939 by MARISELA PROVIDED PT WITH URINE CUP FOR SAMPLE
--- NOTE | 2019-05-29 19:47 | NUR ---
URINE SAMPLE SENT TO LAB
[2019-05-29 20:03] LABS: MICROSCOPIC AUTO
[2019-05-29 20:05] LABS: CULTURE INDICATED? NO
--- NOTE | 2019-05-29 21:03 | NUR ---
PT AMBULATED TO ROOM WITH STEADY GAIT. PT C/O NAUSEA STARTING THIS MORNING, HX CHRONIC STOMACH PROBLEMS. DENIES V/D. CONNECTED TO MONITORING. CALL LIGHT IN REACH. SPOUSE AT BEDSIDE.
[2019-05-29 21:35] VITALS: BP 117/78
[2019-05-29] MEDS ORDERED: HYDROmorphone 2 MG/ML, 1ML IM ONE (21:53)
[2019-05-29] MEDS ORDERED: MAALOX/HYOSCYAMINE/LIDOCAINE 45 ML BTL PO ONE (22:00)
[2019-05-29] MEDS ORDERED: PROMETHAZINE 25 MG/ML, 1ML IM ONE (22:00)
[2019-05-29] MEDS ORDERED: PROMETHAZINE 25 MG/ML, 1ML ONE (22:09)
[2019-05-29] MEDS ORDERED: HYDROmorphone 1 MG/ML, 1ML INJ ONE (22:10)
[2019-05-29] MEDS ORDERED: MAALOX/HYOSCYAMINE/LIDOCAINE 45 ML BTL ONE (22:10)
--- NOTE | 2019-05-29 22:18 | NUR ---
MEDS ADMIN PER MAY. PT REFUSED GI COCKTAIL, STATES IT MAKES HER STOMACH WORSE.
== END 2019-05-29 23:11 | disposition home or self-care (01) ==
LOC: ED 21:12
DX: R10.84 Generalized abdominal pain (principal); R10.12 Left upper quadrant pain; R10.13 Epigastric pain; R10.11 Right upper quadrant pain; R11.0 Nausea; K21.9 Gastro-esophageal reflux disease without esophagitis; F17.210 Nicotine dependence, cigarettes, uncomplicated
CPT/HCPCS: 36415; 80053; 81001; 83690; 84703; 85025; 96372; 99284; J1170; J2550

== ENCOUNTER 2019-07-03 23:06 | Emergency (ER) | payer MEDICAID ==
[~2019-07-03] VITALS: Ht 157.5 cm; Wt 47.4 kg
[2019-07-03 23:28] VITALS: BP 133/76
== END 2019-07-04 00:08 | disposition home or self-care (01) ==
LOC: ED 07-04 00:02
DX: K02.9 Dental caries, unspecified (principal); K08.89 Other specified disorders of teeth and supporting structures; F17.210 Nicotine dependence, cigarettes, uncomplicated; K21.9 Gastro-esophageal reflux disease without esophagitis; Z72.9 Problem related to lifestyle, unspecified; Z98.51 Tubal ligation status
CPT/HCPCS: 99406

== ENCOUNTER 2019-12-31 11:28 | Emergency (ER) | payer MEDICAID ==
[~2019-12-31] VITALS: Ht 157.5 cm; Wt 45.2 kg
--- NOTE | 2019-12-31 12:06 | NUR ---
FONDANT COOKER: PT AMBULATORY TO ROOM FROM LOBBY
--- NOTE | 2019-12-31 12:31 | NUR ---
TECH UNABLE TO GET EKG, PT MOVING AROUND TOO MUCH, STATED SHE IS TOO ANXIOUS.
[2019-12-31] MEDS ORDERED: ZIPRASIDONE 20 MG INJ IM ONE ×2 (13:00→13:29)
[2019-12-31] MEDS ORDERED: SODIUM CHLORIDE FLUSH 10ML SYR IVF ONE (13:00)
[2019-12-31] MEDS ORDERED: KETOROLAC 30 MG/1 ML IVPush ONE (13:00)
[2019-12-31] MEDS ORDERED: DIPHENHYDRAMINE 50 MG/ML, 1ML IVPush ONE (13:00)
[2019-12-31 13:23] LABS: BASOPHILS % (AUTO) 1 % (0-1); EOSINOPHILS % (AUTO) 0 % (1-7); LYMPHOCYTES % (AUTO) 26 % (22-44); MEAN CORPUSCULAR HEMOGLOBIN 27.6 pg (27.0-34.8); MEAN CORPUSCULAR HGB CONC 32.3 g/dL (32.4-35.8); MEAN PLATELET VOLUME 8.4 fL (7.4-10.4); MONOCYTES % (AUTO) 7 % (2-9); NEUTROPHILS % (AUTO) 66 % (42-75); PLATELET COUNT 248 x10^3/uL (130-400); RED BLOOD COUNT 4.34 x10^6/uL (3.82-5.3); RED CELL DISTRIBUTION WIDTH 15.6 % (9.6-15.2)
[2019-12-31] MEDS ORDERED: DIPHENHYDRAMINE 50 MG/ML, 1ML ONE (13:29)
[2019-12-31] MEDS ORDERED: KETOROLAC 30 MG/1 ML ONE (13:29)
[2019-12-31 13:34] LABS: MD NO
[2019-12-31 13:35] LABS: ALANINE AMINOTRANSFERASE 24 U/L (12-78); ALBUMIN 4.3 g/dL (3.4-5.0); ANION GAP 9 mmol/L (5-15); CALCIUM 9.1 mg/dL (8.5-10.1); CHLORIDE 106 mmol/L (98-107); CREATININE 0.66 mg/dL (0.55-1.02)
[2019-12-31 13:39] LABS: ALKALINE PHOSPHATASE 69 U/L (45-117); BILIRUBIN,TOTAL 0.5 mg/dL (0.2-1.0); TOTAL PROTEIN 8.2 g/dL (6.4-8.2)
--- NOTE | 2019-12-31 13:48 | NUR ---
PT REMAINS TOO ANXIOUS, IS NOT HOLDING STILL FOR EKG NOR IV START. PT MEDICATED WITH ORDERED GEODON. WILL TRY IV AND EKG AFTER MEDS HAVE TAKEN EFFECT.
[2019-12-31] MEDS ORDERED: POTASSIUM CHLORIDE 20 MEQ PACKET PO ONE (14:30)
--- NOTE | 2019-12-31 14:47 | NUR ---
PT ABLE TO HOLD STILL FOR IV INSERTION. IV STARTED, ORDERED MEDS GIVEN. PT ABLE TO PROVIDE URINE SAMPLE WITH STAND BY ASSSIT TO BEDSIDE COMMODE. URINE WALKED TO LAB. PT RESTING CALMLY IN BED AT THIS TIME. DAUGHTER AT BEDSIDE. CALL LIGHT WITHIN REACH.
[2019-12-31 14:57] LABS: MICROSCOPIC AUTO
[2019-12-31 15:24] LABS: AMPHETAMINE SCREEN, URINE Negative (Negative); BARBITURATE SCREEN, URINE Negative (Negative); BENZODIAZEPINE SCREEN, URINE Negative (Negative); CANNABINOID SCREEN, URINE Negative (Negative)
[2019-12-31 15:25] LABS: COCAINE SCREEN, URINE Negative (Negative); METHADONE SCREEN, URINE Negative (Negative); OPIATE SCREEN, URINE Negative (Negative)
[2019-12-31] MEDS ORDERED: POTASSIUM CHLORIDE 20 MEQ PACKET ONE (15:51)
[2019-12-31 16:01] VITALS: BP 126/82
== END 2019-12-31 16:02 | disposition home or self-care (01) ==
LOC: ED 12:11
DX: G89.29 Other chronic pain (principal); R10.84 Generalized abdominal pain; E87.6 Hypokalemia; R19.7 Diarrhea, unspecified; R11.0 Nausea; K21.9 Gastro-esophageal reflux disease without esophagitis
CPT/HCPCS: 36415; 74022; 80053; 80307; 81001; 83605; 83690; 84703; 85025; 93005; 96372; 96374; 96375; 99285; J1200; J1885; J3486

== ENCOUNTER → 2020-07-21 | Outpatient (CLI) | payer MEDICAID ==
[~2020-07-21] MED LIST changes: +HYDR-2214 PO; -HYDR-3240 PO
== END | disposition home or self-care (01) ==
LOC: RAD 09:37
PROVIDERS: ATTEND Internal Medicine Gastroenterology
DX: K30 Functional dyspepsia (principal); R11.0 Nausea
CPT/HCPCS: 78264; A9541